=== PATIENT | male | born 1990 | race Caucasian/White ===

== ENCOUNTER 2018-04-22 14:43 | Emergency (ER) | payer OTHER ==
[~2018-04-22] VITALS: Ht 185.4 cm; Wt 136.1 kg
[~2018-04-22 14:43] MED LIST: ANTIBIOT TOP; NOHOMEMEDICATIONS
[2018-04-22] MEDS ORDERED: IBUPROFEN 600600 M1 PO (15:28)
[2018-04-22 15:49] VITALS: BP 150/81
== END 2018-04-22 15:50 | disposition home or self-care (01) ==
LOC: M.ERS 14:43
DX: S63.8X1A Sprain of other part of right wrist and hand, initial encounter (principal); X58.XXXA Exposure to other specified factors, initial encounter; Y93.89 Activity, other specified; Y92.89 Other specified places as the place of occurrence of the external cause; Y99.8 Other external cause status